=== PATIENT | female | born 1970 | race Caucasian/White ===

== ENCOUNTER 2017-05-23 21:58 | Emergency (ER) | payer BC ==
[2017-05-23 22:22] VITALS: BP 164/86
[2017-05-23] MEDS ORDERED: Acetaminophen/HYDROcodone 325-10 MG Tab PO ONE (22:37)
[2017-05-23] MEDS ORDERED: Phenazopyridine 95 MG Tab PO ONE (22:40)
--- NOTE | 2017-05-23 22:41 | EDM.PDOC ---
ED HPI GENERAL MEDICAL PROBLEM - General Chief Complaint: Genitourinary Problem Stated Complaint: SEVERE ABD PAINS, [id number] Time Seen by Provider: 05/23/17 22:39 Source of Information: Reports: Patient History Limitations: Reports: No Limitations - History of Present Illness INITIAL COMMENTS - FREE TEXT/NARRATIVE: gives recurrent h/o UTI, but this time her pain feels worse. Pelvic Pain Score (Numeric/FACES): 7 - Related Data Allergies Allergy/AdvReac Type Severity Reaction Status Date / Time metronidazole [From Flagyl] Allergy Facial Verified 05/23/17 22:18 Swelling Metronidazole HCl Allergy Facial Verified 05/23/17 22:18 [From Flagyl] Swelling morphine Allergy Vomiting Verified 05/23/17 22:18 povidone-iodine Allergy Swelling Verified 05/23/17 22:18 [From Betadine] soap [From Betadine] Allergy Swelling Verified 05/23/17 22:18 IV contrast Allergy Swelling Uncoded 05/23/17 22:18 tape Allergy Blisters Uncoded 05/23/17 22:18 Home Meds: Home Meds Acetaminophen [Tylenol] 1,500 mg PO QID PRN 11/24/13 [History] Aspirin [Saud Chewable Aspirin] 81 mg PO DAILY 11/24/13 [History] Calcium Carb & Citrate/Vit D3 [Calcium + Vitamin D3 Caplet] 200 mg PO DAILY [History] Hydrochlorothiazide 25 mg PO DAILY 11/24/13 [History] Losartan [Cozaar] 50 mg PO DAILY 11/24/13 [History] Metoprolol Tartrate [Lopressor] 50 mg PO BID 11/24/13 [History] Pantoprazole Sodium [Pantoprazole Sodium] 40 mg PO DAILY 11/24/13 [History] Simvastatin [Simvastatin] 20 mg PO DAILY 11/24/13 [History] metFORMIN [Glucophage] 1,000 mg PO BID 11/24/13 [History] Azithromycin [Azithromycin] 250 mg PO ASDIRECTED 09/16/16 [History] Ibuprofen [Motrin] 800 mg PO ASDIRECTED PRN 09/16/16 [History] Liraglutide [Victoza] 1.8 ml SQ DAILY 09/16/16 [History] Promethazine HCl/Codeine [Promethazine-Codeine Syrup] 5 ml PO ASDIRECTED PRN 06/22 [History] Past Medical History HEENT History: Reports: Impaired Vision Other HEENT History: wears glasses Cardiovascular History: Reports: High Cholesterol, Hypertension Respiratory History: Reports: None Gastrointestinal History: Reports: GERD Genitourinary History: Reports: Renal Calculus Other Genitourinary History: bladder sling 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 Musculoskeletal History: Reports: None Neurological History: Reports: None Psychiatric History: Reports: None Endocrine/Metabolic History: Reports: Diabetes, Type II Hematologic History: Reports: None Immunologic History: Reports: None Oncologic (Cancer) History: Reports: Other (See Below) Other Oncologic History: Kidney Dermatologic History: Reports: None - Infectious Disease History Infectious Disease History: Reports: Chicken Pox, Influenza Other Infectious Disease History: CMV Social & Family History - Family History Family Medical History: Noncontributory - Tobacco Use Smoking Status *Q: Never Smoker Second Hand Smoke Exposure: No - Caffeine Use Caffeine Use: Reports: Coffee, Soda - Alcohol Use Days Per Week of Alcohol Use: 0 - Recreational Drug Use Recreational Drug Use: No - Living Situation & Occupation Living situation: Reports: Occupation: Employed ED ROS GENERAL - Review of Systems Review Of Systems: ROS reveals no pertinent complaints other than HPI. ED EXAM, RENAL/ - Physical Exam Exam: See Below Exam Limited By: No Limitations General Appearance: Alert, WD/WN, Mild Distress, Other (pain) Ears: Hearing Grossly Normal Throat/Mouth: Normal Voice, No Airway Compromise Head: Atraumatic Neck: Non-Tender, Full Range of Motion Respiratory/Chest: No Respiratory Distress Cardiovascular: Regular Rate, Rhythm GI/Abdominal: Tender, Other (suprapubic). No: Distended, Guarding, Rigid, Rebound Neurological: Alert, Oriented, Normal Cognition, Normal Gait, No Motor/Sensory Deficits Psychiatric: Tearful Skin Exam: Warm, Dry, Normal Color Lymphatic: No Adenopathy Course - Vital Signs Last Recorded V/S: Last Vital Signs Temp 36.3 C 05/23/17 22:21 Pulse 108 H 05/23/17 22:21 Resp 22 H 05/23/17 22:21 BP 164/86 H 05/23/17 22:21 Pulse Ox 98 05/23/17 22:21 - Orders/Labs/Meds Labs: Laboratory Tests 05/23/17 Range/Units 22:04 Urine Color Brown (YELLOW) Urine Appearance Turbid (CLEAR) Urine pH 6.0 (5.0-9.0) Ur Specific [place] >= 1.030 (1.005-1.030) Urine Protein >=300 H (NEGATIVE) Urine Glucose (UA) Negative (NEGATIVE) Urine Ketones 15 H (NEGATIVE) Urine Occult Blood Large H (NEGATIVE) Urine Nitrite Positive H (NEGATIVE) Urine Bilirubin Moderate H (NEGATIVE) Urine Urobilinogen 1.0 (0.2-1.0) mg/dL Ur Leukocyte Esterase Negative (NEGATIVE) Urine RBC Packed H /HPF Urine WBC >100 H (0-5/HPF) /HPF Ur Epithelial Cells Moderate H /HPF Urine Bacteria Many H (0-FEW/HPF) /HPF Meds: Medications Discontinued Medications Generic Name Dose Route Start Last Admin Trade Name Freq PRN Reason Stop Dose Admin Hydrocodone Bitart/Acetaminophen 1 tab 05/23/17 22:37 05/23/17 22:43 [place] 325-10 Mg PO 05/23/17 22:38 1 tab ONETIME ONE Administration Nitrofurantoin Macrocrystals 100 mg 05/23/17 22:46 Macrobid PO 05/23/17 22:47 ONETIME ONE Phenazopyridine HCl 95 mg 05/23/17 22:40 05/23/17 22:43 Urinary Pain Relief PO 05/23/17 22:41 95 mg ONETIME ONE Administration - Re-Assessments/Exams Free Text/Narrative Re-Assessment/Exam: 05/23/17 22:48 results discussed with pt. Departure - Departure Time of Disposition: 22:48 Disposition: Home, Self-Care 01 Condition: Good Clinical Impression: UTI, Urinary tract infectious disease - Discharge Information Instructions: Urinary Tract Infection, Adult, [id number] Forms: ED Department Discharge Additional Instructions: 1) drink lots of liquids, cranberry juice 2) recheck as needed rx given; bactrim DS bid x 20 pyridium 100mg tid prn x 12
[2017-05-23] MEDS ORDERED: Nitrofurantoin Monohydrate/Macrocrystalline 100 MG Cap PO ONE (22:46)
== END 2017-05-23 22:54 | disposition home or self-care (01) ==
LOC: DL.ED 21:58
DX: N39.0 Urinary tract infection, site not specified (principal); E78.00 Pure hypercholesterolemia, unspecified; I10 Essential (primary) hypertension; K21.9 Gastro-esophageal reflux disease without esophagitis; E11.9 Type 2 diabetes mellitus without complications; Z88.8 Allergy status to other drugs, medicaments and biological substances; Z91.048 Other nonmedicinal substance allergy status; Z88.5 Allergy status to narcotic agent; Z79.82 Long term (current) use of aspirin
CPT/HCPCS: 81001; 87086; 99283; A9270; 87088; 87186

== ENCOUNTER 2017-05-27 10:06 | Emergency (ER) | payer BC ==
[2017-05-27 11:21] VITALS: BP 130/68
[2017-05-27] MEDS ORDERED: HYDROmorphone 1 MG/ML Syringe IVPUSH ONE (11:32)
[2017-05-27] MEDS ORDERED: Sodium Chloride 0.9% 1,000 ML IV ONE (11:32)
[2017-05-27] MEDS ORDERED: Ondansetron 4 MG/2 ML SDV IV ONE ×2 (11:34→12:50)
--- NOTE | 2017-05-27 11:35 | EDM.PDOC ---
ED HPI GENERAL MEDICAL PROBLEM - General Chief Complaint: Fever Stated Complaint: CONSTANT TEMP, PAIN ON RT SIDE Time Seen by Provider: 05/27/17 11:29 Source of Information: Reports: Patient History Limitations: Reports: No Limitations - History of Present Illness INITIAL COMMENTS - FREE TEXT/NARRATIVE: 47 yo white female c/o continued fever since one day after ED visit. Pt. on Bactrim for UTI since Sun. Pt. PMHx. Right Kidney Stone and Right renal cancer. PSHx. Partial right nephrectomy Pt. states symptoms began on Onset Date: 05/23/17 Onset Time: 12:00 Duration: Day(s): Location: Reports: Abdomen, Back, Generalized Quality: Reports: Ache Severity: Moderate Improves with: Reports: Medication (Ibuprofen) Worsens with: Reports: None Associated Symptoms: Reports: Fever/Chills Right Flank Pain Score (Numeric/FACES): 5 - Related Data Allergies Allergy/AdvReac Type Severity Reaction Status Date / Time metronidazole [From Flagyl] Allergy Facial Verified 05/27/17 11:21 Swelling Metronidazole HCl Allergy Facial Verified 05/27/17 11:21 [From Flagyl] Swelling morphine Allergy Vomiting Verified 05/27/17 11:21 povidone-iodine Allergy Swelling Verified 05/27/17 11:21 [From Betadine] soap [From Betadine] Allergy Swelling Verified 05/27/17 11:21 IV contrast Allergy Swelling Uncoded 05/27/17 11:21 tape Allergy Blisters Uncoded 05/27/17 11:21 Home Meds: Home Meds Acetaminophen [Tylenol] 1,500 mg PO QID PRN 11/24/13 [History] Aspirin [Saud Chewable Aspirin] 81 mg PO DAILY 11/24/13 [History] Calcium Carb & Citrate/Vit D3 [Calcium + Vitamin D3 Caplet] 200 mg PO DAILY [History] Hydrochlorothiazide 12.5 mg PO DAILY 11/24/13 [History] Losartan [Cozaar] 50 mg PO DAILY 11/24/13 [History] Metoprolol Tartrate [Lopressor] 50 mg PO BID 11/24/13 [History] Pantoprazole Sodium [Pantoprazole Sodium] 40 mg PO DAILY 11/24/13 [History] Simvastatin [Simvastatin] 20 mg PO DAILY 11/24/13 [History] metFORMIN [Glucophage] 1,000 mg PO BID 11/24/13 [History] Ibuprofen [Motrin] 800 mg PO ASDIRECTED PRN 09/16/16 [History] Liraglutide [Victoza] 1.8 ml SQ DAILY 09/16/16 [History] Acetaminophen [Tylenol Extra Strength] 1,500 mg PO ASDIRECTED PRN 05/27/17 [ History] Potassium Chloride [Potassium Chloride] 10 meq PO DAILY 05/27/17 [History] Past Medical History HEENT History: Reports: Impaired Vision Other HEENT History: wears glasses Cardiovascular History: Reports: High Cholesterol, Hypertension Respiratory History: Reports: None Gastrointestinal History: Reports: GERD Genitourinary History: Reports: Renal Calculus Other Genitourinary History: bladder sling 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 Musculoskeletal History: Reports: None Neurological History: Reports: None Psychiatric History: Reports: None Endocrine/Metabolic History: Reports: Diabetes, Type II Hematologic History: Reports: None Immunologic History: Reports: None Oncologic (Cancer) History: Reports: Other (See Below) Other Oncologic History: Kidney Dermatologic History: Reports: None - Infectious Disease History Infectious Disease History: Reports: Chicken Pox, Influenza Other Infectious Disease History: CMV Social & Family History - Family History Family Medical History: Noncontributory - Tobacco Use Smoking Status *Q: Never Smoker Second Hand Smoke Exposure: No - Caffeine Use Caffeine Use: Reports: Coffee, Soda - Alcohol Use Days Per Week of Alcohol Use: 0 - Recreational Drug Use Recreational Drug Use: No - Living Situation & Occupation Living situation: Reports: Occupation: Employed ED ROS GENERAL - Review of Systems Review Of Systems: See Below Constitutional: Reports: No Symptoms HEENT: Reports: No Symptoms Respiratory: Reports: No Symptoms Cardiovascular: Reports: No Symptoms Endocrine: Reports: No Symptoms GI/Abdominal: Reports: Abdominal Pain (right flank) : Reports: Flank Pain (right), Hematuria Musculoskeletal: Reports: No Symptoms Skin: Reports: No Symptoms Neurological: Reports: No Symptoms Psychiatric: Reports: No Symptoms Hematologic/Lymphatic: Reports: No Symptoms Immunologic: Reports: No Symptoms ED EXAM, RENAL/ - Physical Exam Exam: See Below Exam Limited By: No Limitations General Appearance: Alert, No Apparent Distress, Obese Eye Exam: Bilateral Eye: EOMI, PERRL Ears: Normal External Exam Nose: Normal Inspection Throat/Mouth: Normal Inspection Head: Atraumatic Neck: Normal Inspection Respiratory/Chest: No Respiratory Distress, Lungs Clear Cardiovascular: Normal Peripheral Pulses, Regular Rate, Rhythm GI/Abdominal: Normal Bowel Sounds, Soft, Non-Tender Back Exam: Normal Inspection Extremities: Normal Inspection, Normal Range of Motion Neurological: Alert, Oriented, CN II-XII Intact Psychiatric: Normal Affect, Normal Mood Skin Exam: Warm, Dry, Intact, Normal Color, No Rash Lymphatic: No Adenopathy Course - Vital Signs Last Recorded V/S: Last Vital Signs Temp 36.4 C 05/27/17 11:16 Pulse 107 H 05/27/17 11:16 Resp 16 05/27/17 11:16 BP 130/68 05/27/17 11:16 Pulse Ox 95 05/27/17 11:16 - Orders/Labs/Meds Orders: Active Orders 24 hr Category Date Time Status Abdomen Pelvis wo Cont [CT] Urgent Exams 05/27/17 11:32 Ordered CULTURE BLOOD [BC] Stat Lab 05/27/17 11:46 Received CULTURE BLOOD [BC] Stat Lab 05/27/17 12:03 Received CULTURE URINE [RM] Stat Lab 05/27/17 11:50 Received Labs: Laboratory Tests 05/27/17 05/27/17 05/27/17 Range/Units 11:46 11:46 11:50 WBC 4.2 L (5.0-10.0) 10^3/uL RBC 4.10 L (4.2-5.4) 10^6/uL Hgb 12.5 D (12.0-16.0) g/dL Hct 37.7 (37.0-47.0) % MCV 92.0 (80-100) fL MCH 30.5 (27.0-34.0) pg MCHC 33.2 (33.0-35.0) g/dL Plt Count 184 D (150-450) 10^3/uL Neut % (Auto) 79.3 H (42.2-75.2) % Lymph % (Auto) 8.7 L (20.5-50.1) % [place] % (Auto) 9.9 H (2-8) % Eos % (Auto) 1.9 (1.0-3.0) % Baso % (Auto) 0.2 (0.0-1.0) % Sodium 137 (135-145) mmol/L Potassium 3.5 L (3.6-5.0) mmol/L Chloride 100 L (101-111) mmol/L Carbon Dioxide 23.0 (21.0-31.0) mmol/L Anion Gap 17.5 BUN 10 (7-18) mg/dL Creatinine 0.6 (0.6-1.3) mg/dL Est Cr Clr Drug Dosing 118.53 mL/min Estimated GFR (MDRD) > 60 BUN/Creatinine Ratio 16.66 Glucose 206 H (74-105) mg/dL Lactic Acid (0.5-2.2) mmol/L Calcium 9.0 (8.4-10.2) mg/dl Total Bilirubin 4.1 H (0.2-1.0) mg/dL AST 116 H (10-42) IU/L ALT 146 H (10-60) IU/L Alkaline Phosphatase 116 (42-121) IU/L Total Protein 7.2 (6.7-8.2) g/dl Albumin 3.3 (3.2-5.5) g/dl Globulin 3.9 Albumin/Globulin Ratio 0.85 Urine Color [place] (YELLOW) Urine Appearance Clear (CLEAR) Urine pH 6.0 (5.0-9.0) Ur Specific [place] 1.010 (1.005-1.030) Urine Protein 30 H (NEGATIVE) Urine Glucose (UA) 100 H (NEGATIVE) Urine Ketones 80 H (NEGATIVE) Urine Occult Blood Trace-intact H (NEGATIVE) Urine Nitrite Positive H (NEGATIVE) Urine Bilirubin Large H (NEGATIVE) Urine Urobilinogen 2.0 H (0.2-1.0) mg/dL Ur Leukocyte Esterase Negative (NEGATIVE) Urine RBC 0-5 /HPF Urine WBC 5-10 H (0-5/HPF) /HPF Ur Epithelial Cells Moderate H /HPF Urine Bacteria Few (0-FEW/HPF) /HPF Urine Mucus Few H /LPF 05/27/17 Range/Units 12:03 WBC (5.0-10.0) 10^3/uL RBC (4.2-5.4) 10^6/uL Hgb (12.0-16.0) g/dL Hct (37.0-47.0) % MCV (80-100) fL MCH (27.0-34.0) pg MCHC (33.0-35.0) g/dL Plt Count (150-450) 10^3/uL Neut % (Auto) (42.2-75.2) % Lymph % (Auto) (20.5-50.1) % [place] % (Auto) (2-8) % Eos % (Auto) (1.0-3.0) % Baso % (Auto) (0.0-1.0) % Sodium (135-145) mmol/L Potassium (3.6-5.0) mmol/L Chloride (101-111) mmol/L Carbon Dioxide (21.0-31.0) mmol/L Anion Gap BUN (7-18) mg/dL Creatinine (0.6-1.3) mg/dL Est Cr Clr Drug Dosing mL/min Estimated GFR (MDRD) BUN/Creatinine Ratio Glucose (74-105) mg/dL Lactic Acid 1.6 (0.5-2.2) mmol/L Calcium (8.4-10.2) mg/dl Total Bilirubin (0.2-1.0) mg/dL AST (10-42) IU/L ALT (10-60) IU/L Alkaline Phosphatase (42-121) IU/L Total Protein (6.7-8.2) g/dl Albumin (3.2-5.5) g/dl Globulin Albumin/Globulin Ratio Urine Color (YELLOW) Urine Appearance (CLEAR) Urine pH (5.0-9.0) Ur Specific [place] (1.005-1.030) Urine Protein (NEGATIVE) Urine Glucose (UA) (NEGATIVE) Urine Ketones (NEGATIVE) Urine Occult Blood (NEGATIVE) Urine Nitrite (NEGATIVE) Urine Bilirubin (NEGATIVE) Urine Urobilinogen (0.2-1.0) mg/dL Ur Leukocyte Esterase (NEGATIVE) Urine RBC /HPF Urine WBC (0-5/HPF) /HPF Ur Epithelial Cells /HPF Urine Bacteria (0-FEW/HPF) /HPF Urine Mucus /LPF Meds: Medications Discontinued Medications Generic Name Dose Route Start Last Admin Trade Name Freq PRN Reason Stop Dose Admin Hydromorphone HCl 2 mg 05/27/17 11:32 05/27/17 12:04 Dilaudid IVPUSH 05/27/17 11:33 2 mg ONETIME ONE Administration Sodium Chloride 1,000 mls @ 999 mls/hr 05/27/17 11:32 05/27/17 12:01 Normal Saline IV 05/27/17 12:32 999 mls/hr .BOLUS ONE Administration Ondansetron HCl 4 mg 05/27/17 11:34 05/27/17 12:02 Zofran IV 05/27/17 11:35 4 mg ONETIME ONE Administration Departure - Departure Time of Disposition: 12:45 Disposition: DC/Tfer to Acute Hospital 02 Condition: Fair 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 UTI (urinary tract infection) Qualifiers: Urinary tract infection type: acute cystitis Hematuria presence: with hematuria Qualified Code(s): N30.01 - Acute cystitis with hematuria - Discharge Information Forms: ED Department Discharge, Interfacility Transfer EMTALA - My Orders Last 24 Hours: My Active Orders 05/27/17 11:32 Abdomen Pelvis wo Cont [CT] Urgent 05/27/17 11:46 CULTURE BLOOD [BC] Stat 05/27/17 11:50 CULTURE URINE [RM] Stat 05/27/17 12:03 CULTURE BLOOD [BC] Stat - Assessment/Plan Last 24 Hours: My Active Orders 05/27/17 11:32 Abdomen Pelvis wo Cont [CT] Urgent 05/27/17 11:46 CULTURE BLOOD [BC] Stat 05/27/17 11:50 CULTURE URINE [RM] Stat 05/27/17 12:03 CULTURE BLOOD [BC] Stat
[2017-05-27 12:13] LABS: CHLORIDE,CL 100 mmol/L (101-111); SODIUM,NA 137 mmol/L (135-145)
== END 2017-05-27 13:28 ==
LOC: DL.ED 10:06
DX: N30.01 Acute cystitis with hematuria (principal); L51.1 Stevens-Johnson syndrome; I10 Essential (primary) hypertension; E78.00 Pure hypercholesterolemia, unspecified; E11.9 Type 2 diabetes mellitus without complications; Z79.84 Long term (current) use of oral hypoglycemic drugs; Z79.82 Long term (current) use of aspirin; Z79.899 Other long term (current) drug therapy; Z91.09 Other allergy status, other than to drugs and biological substances; Z88.8 Allergy status to other drugs, medicaments and biological substances; Z88.5 Allergy status to narcotic agent
CPT/HCPCS: 36415; 74176; 80053; 81001; 83605; 85025; 87040; 87086; 96361; 96374; 96375; 96376; 99285; J1170; J2405; J7030; 87088

== ENCOUNTER 2018-12-02 08:58 | Emergency (ER) | payer BC ==
[2018-12-02 10:24] VITALS: BP 146/72
--- NOTE | 2018-12-02 12:00 | CR ---
Clinical history: 48-year-old female complaining of pain in neck ("unable to move"). Interpretation: AP lateral cervical spine films confirm right supraclavicular central venous line. Chronic multilevel lower cervical disc disease i.e. interspace narrowing with hypertrophic marginal spondylosis bridging the C5-6 and the C6-7 levels. Reactive atlantoaxial sclerosis. No sign of pathologic skeletal lesion, cervical fracture, spondylolisthesis or proximal intervertebral disc space narrowing. No cervical rib anomalies. Lung apices clear. 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
[2018-12-02] MEDS ORDERED: Butorphanol 2 MG/ML SDV IM ONE (12:18)
--- NOTE | 2018-12-02 12:18 | EDM.PDOC ---
ED HPI GENERAL MEDICAL PROBLEM - General Chief Complaint: Neck Problem Stated Complaint: NECK HURTS [id number] Time Seen by Provider: 12/02/18 11:10 Source of Information: Reports: Patient, RN, RN Notes Reviewed History Limitations: Reports: No Limitations - History of Present Illness INITIAL COMMENTS - FREE TEXT/NARRATIVE: Patient presents to ER with complaint of neck pain. This began x1 week ago. Sunday couldn't move to the right. Today he is much worse not able to move any direction. She denies trauma to the neck--states she slept wrong. She has diarrhea on Sunday. No headache, fever, chills, nausea or vomiting. Onset Date: 11/25/18 Duration: Getting Worse Location: Reports: Generalized Severity: Moderate Improves with: Reports: None Worsens with: Reports: None Associated Symptoms: Reports: No Other Symptoms Neck Pain Score (Numeric/FACES): 7 - Related Data Allergies Allergy/AdvReac Type Severity Reaction Status Date / Time metronidazole [From Flagyl] Allergy Facial Verified 05/27/17 11:21 Swelling Metronidazole HCl Allergy Facial Verified 05/27/17 11:21 [From Flagyl] Swelling morphine Allergy Vomiting Verified 05/27/17 11:21 povidone-iodine Allergy Swelling Verified 05/27/17 11:21 [From Betadine] soap [From Betadine] Allergy Swelling Verified 05/27/17 11:21 IV contrast Allergy Swelling Uncoded 05/27/17 11:21 tape Allergy Blisters Uncoded 05/27/17 11:21 Home Meds: Home Meds Acetaminophen [Tylenol] 1,500 mg PO QID PRN 11/24/13 [History] Aspirin [Saud Chewable Aspirin] 81 mg PO DAILY 11/24/13 [History] Calcium Carb & Citrate/Vit D3 [Calcium + Vitamin D3 Caplet] 200 mg PO DAILY [History] Losartan [Cozaar] 50 mg PO DAILY 11/24/13 [History] Metoprolol Tartrate [Lopressor] 50 mg PO BID 11/24/13 [History] Pantoprazole Sodium 40 mg PO DAILY 11/24/13 [History] Simvastatin 20 mg PO DAILY 11/24/13 [History] hydroCHLOROthiazide [Hydrochlorothiazide] 12.5 mg PO DAILY 11/24/13 [History] metFORMIN [Glucophage] 1,000 mg PO BID 11/24/13 [History] Ibuprofen [Motrin] 800 mg PO ASDIRECTED PRN 09/16/16 [History] Liraglutide [Victoza] 1.8 ml SQ DAILY 09/16/16 [History] Acetaminophen [Tylenol Extra Strength] 1,500 mg PO ASDIRECTED PRN 05/27/17 [ History] Potassium Chloride 10 meq PO DAILY 05/27/17 [History] Past Medical History HEENT History: Reports: Impaired Vision Other HEENT History: wears glasses Cardiovascular History: Reports: High Cholesterol, Hypertension Respiratory History: Reports: None Gastrointestinal History: Reports: GERD Genitourinary History: Reports: Renal Calculus Other Genitourinary History: bladder sling 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 Musculoskeletal History: Reports: None (disc to neck), Other (See Below) Neurological History: Reports: None Psychiatric History: Reports: None Endocrine/Metabolic History: Reports: Diabetes, Type II Hematologic History: Reports: None Immunologic History: Reports: None Oncologic (Cancer) History: Reports: Other (See Below) Other Oncologic History: Kidney Dermatologic History: Reports: None - Infectious Disease History Infectious Disease History: Reports: Chicken Pox, Influenza Other Infectious Disease History: CMV Social & Family History - Family History Family Medical History: Noncontributory - Tobacco Use Smoking Status *Q: Never Smoker - Caffeine Use Caffeine Use: Reports: None - Recreational Drug Use Recreational Drug Use: No - Living Situation & Occupation Living situation: Reports: Occupation: Employed ED ROS GENERAL - Review of Systems Review Of Systems: ROS reveals no pertinent complaints other than HPI. ED EXAM, UPPER BACK/NECK PAIN - Physical Exam Exam: See Below Exam Limited By: No Limitations General Appearance: Alert, WD/WN, No Apparent Distress Eye Exam: Bilateral Eye: EOMI, Normal Inspection, PERRL Ears Exam: Normal External Exam, Normal Canal, Hearing Grossly Normal, Normal TMs Nose Exam: Normal Inspection, Normal Mucousa, No Blood Throat/Mouth Exam: Normal Inspection Head Exam: Atraumatic, Normocephalic Neck Exam: Other (decreased range of motion of neck tender lateral) Cardiovascular/Respiratory: Regular Rate, Rhythm, No M/R/G, Normal Peripheral Pulses, No JVD, Normal Breath Sounds, No Respiratory Distress GI/Abdominal: Normal Bowel Sounds, Soft, Non-Tender, No Organomegaly, No Distention, No Abnormal Bruit, No Mass (Female) Exam: Deferred Rectal (Female) Exam: Deferred Back Exam: Normal Inspection, Full Range of Motion, NT Extremities: Normal Inspection, Normal Range of Motion, Non-Tender, No Pedal Edema, Normal Capillary Refill Neurologic: clinical practitioner II-XII nml As Tested, No Motor/Sensory Deficits, Alert, Normal Mood/Affect, Oriented x 3 Psychiatric: Normal Affect, Normal Mood Skin Exam: Normal Color, Warm/Dry Lymphatic: No Adenopathy Course - Vital Signs Last Recorded V/S: Last Vital Signs Temp 98.4 F 12/02/18 09:30 Pulse 82 12/02/18 09:30 Resp 16 12/02/18 09:30 BP 146/72 H 12/02/18 09:30 Pulse Ox 96 12/02/18 09:30 - Orders/Labs/Meds Meds: Medications Discontinued Medications Generic Name Dose Route Start Last Admin Trade Name Freq PRN Reason Stop Dose Admin Butorphanol Tartrate 2 mg 12/02/18 12:18 12/02/18 12:24 Stadol IM 12/02/18 12:19 2 mg ONETIME ONE Administration Ondansetron HCl 4 mg 12/02/18 12:19 12/02/18 12:24 Zofran Odt PO 12/02/18 12:20 4 mg ONETIME ONE Administration Orphenadrine Citrate 60 mg 12/02/18 11:15 12/02/18 11:26 Norflex IM 60 mg Q12H EMELY Administration - Radiology Interpretation Free Text/Narrative:: CSpine xray: 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 See rad report Departure - Departure Time of Disposition: 12:30 Disposition: Home, Self-Care 01 Condition: Fair Clinical Impression: Muscle spasm Cervical sprain Qualifiers: Encounter type: initial encounter Qualified Code(s): S13.9XXA - Sprain of joints and ligaments of unspecified parts of neck, initial encounter - Discharge Information *PRESCRIPTION DRUG MONITORING PROGRAM REVIEWED*: No *COPY OF PRESCRIPTION DRUG MONITORING REPORT IN PATIENT ERMA: No Instructions: Muscle Cramps and Spasms, [id number], Cervical Sprain, Easy-to- Read, Heat Therapy, [id number] Referrals: PCP,None [Primary Care Provider] - Forms: ED Department Discharge Additional Instructions: RX: Flexeril, Diclofenac Continue using Tylenol as directed for pain Use heat on the neck as tolerated Follow up with your primary care facility if no improvement
[2018-12-02] MEDS ORDERED: Ondansetron 4 MG Tab.DIS PO ONE (12:19)
== END 2018-12-02 12:40 | disposition home or self-care (01) ==
LOC: DL.ED 08:58
DX: S13.9XXA Sprain of joints and ligaments of unspecified parts of neck, initial encounter (principal); M62.838 Other muscle spasm; M50.90 Cervical disc disorder, unspecified, unspecified cervical region; I10 Essential (primary) hypertension; E11.9 Type 2 diabetes mellitus without complications; Z88.5 Allergy status to narcotic agent; Z88.8 Allergy status to other drugs, medicaments and biological substances; Z91.048 Other nonmedicinal substance allergy status; Z79.899 Other long term (current) drug therapy; Z79.82 Long term (current) use of aspirin
CPT/HCPCS: 72040; 96372; 99283; A9270; J0595; J2360

== ENCOUNTER 2019-05-20 14:26 | Emergency (ER) | payer BC ==
[2019-05-20 15:00] VITALS: BP 148/83; PULSE 92
--- NOTE | 2019-05-20 16:16 | CR ---
EXAMINATION: Knee 4 views Lt SEX: Female AGE: 49 years CLINICAL HISTORY: 49-year-old female complaining of left knee pain. INTERPRETATION: 1. Dense reactive sclerosis and marginal spur formation patellofemoral surface of the left patella. 2. No joint effusion but evidence of chronic severe arthritic changes of the left knee joint i.e. cortical irregularity, dense bony eburnation and hypertrophic marginal spur formation medially (large bone spurs intercondylar tibial spine). 3. No sign of pathologic skeletal lesion, left knee fracture, dislocation or radiopaque loose joint body. 4. Fabella posteriorly. No foreign bodies. CONCLUSION: Osteoarthritis (0A) left knee. No fractures.
--- NOTE | 2019-05-20 16:23 | EDM.PDOC ---
ED HPI GENERAL MEDICAL PROBLEM - General Chief Complaint: Lower Extremity Injury/Pain Stated Complaint: SEVERE LEFT KNEE PAIN Time Seen by Provider: 05/20/19 15:58 Source of Information: Reports: Patient History Limitations: Reports: No Limitations - History of Present Illness INITIAL COMMENTS - FREE TEXT/NARRATIVE: This 49 year old female patient reports to the ED from PT due to left knee pain. The patient reports her pain started Sunday when she rolled over in bed. The patient reports increased pain since the incident. Onset Date: 05/18/19 Duration: Constant Location: Reports: Lower Extremity, Left Quality: Reports: Ache, Sharp Severity: Moderate Improves with: Reports: None Worsens with: Reports: None Context: Reports: Other Associated Symptoms: Reports: No Other Symptoms - Related Data Allergies Allergy/AdvReac Type Severity Reaction Status Date / Time metronidazole [From Flagyl] Allergy Facial Verified 05/20/19 14:51 Swelling Metronidazole HCl Allergy Facial Verified 05/20/19 14:51 [From Flagyl] Swelling morphine Allergy Vomiting Verified 05/20/19 14:51 povidone-iodine Allergy Swelling Verified 05/20/19 14:51 [From Betadine] soap [From Betadine] Allergy Swelling Verified 05/20/19 14:51 IV contrast Allergy Swelling Uncoded 05/20/19 14:51 tape Allergy Blisters Uncoded 05/20/19 14:51 Home Meds: Home Meds Acetaminophen [Tylenol] 1,500 mg PO QID PRN 11/24/13 [History] Aspirin [Saud Chewable Aspirin] 81 mg PO DAILY 11/24/13 [History] Calcium Carb & Citrate/Vit D3 [Calcium + Vitamin D3 Caplet] 200 mg PO DAILY [History] Losartan [Cozaar] 50 mg PO DAILY 11/24/13 [History] Metoprolol Tartrate [Lopressor] 50 mg PO BID 11/24/13 [History] Pantoprazole Sodium 40 mg PO DAILY 11/24/13 [History] Simvastatin 20 mg PO DAILY 11/24/13 [History] hydroCHLOROthiazide [Hydrochlorothiazide] 12.5 mg PO DAILY 11/24/13 [History] metFORMIN [Glucophage] 1,000 mg PO BID 11/24/13 [History] Ibuprofen [Motrin] 800 mg PO ASDIRECTED PRN 09/16/16 [History] Liraglutide [Victoza] 1.8 ml SQ DAILY 09/16/16 [History] Acetaminophen [Tylenol Extra Strength] 1,500 mg PO ASDIRECTED PRN 05/27/17 [ History] Potassium Chloride 10 meq PO DAILY 05/27/17 [History] Past Medical History HEENT History: Reports: Impaired Vision Other HEENT History: wears glasses Cardiovascular History: Reports: High Cholesterol, Hypertension Respiratory History: Reports: None Gastrointestinal History: Reports: GERD Genitourinary History: Reports: Renal Calculus, Other (See Below) Other Genitourinary History: bladder sling 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 Musculoskeletal History: Reports: None, Other (See Below) Neurological History: Reports: None Psychiatric History: Reports: None Endocrine/Metabolic History: Reports: Diabetes, Type II Hematologic History: Reports: None Immunologic History: Reports: None Oncologic (Cancer) History: Reports: Other (See Below) Other Oncologic History: Kidney Dermatologic History: Reports: None - Infectious Disease History Infectious Disease History: Reports: Chicken Pox, Influenza Other Infectious Disease History: CMV Social & Family History - Family History Family Medical History: Noncontributory - Tobacco Use Smoking Status *Q: Never Smoker Second Hand Smoke Exposure: No - Caffeine Use Caffeine Use: Reports: None - Living Situation & Occupation Living situation: Reports: Occupation: Employed Review of Systems - Review of Systems Review Of Systems: ROS reveals no pertinent complaints other than HPI. ED EXAM, GENERAL - Physical Exam Exam: See Below Exam Limited By: No Limitations General Appearance: Alert, WD/WN, Moderate Distress Eye Exam: Bilateral Eye: EOMI, Normal Inspection, PERRL Ears: Normal External Exam, Normal Canal, Hearing Grossly Normal, Normal TMs Nose: Normal Inspection, Normal Mucosa, No Blood Throat/Mouth: Normal Inspection, Normal Lips, Normal Teeth, Normal Gums, Normal Oropharynx, Normal Voice, No Airway Compromise Head: Atraumatic, Normocephalic Neck: Normal Inspection, Supple, Non-Tender, Full Range of Motion Respiratory/Chest: No Respiratory Distress, Lungs Clear, Normal Breath Sounds, No Accessory Muscle Use, Chest Non-Tender Cardiovascular: Normal Peripheral Pulses, Regular Rate, Rhythm, No Edema, No Gallop, No JVD, No Murmur, No Rub GI/Abdominal: Normal Bowel Sounds, Soft, Non-Tender, No Organomegaly, No Distention, No Abnormal Bruit, No Mass (Female) Exam: Deferred Rectal (Female) Exam: Deferred Back Exam: Normal Inspection, Full Range of Motion, NT Extremities: Leg Pain (left knee pain) Neurological: Alert, Oriented, CN II-XII Intact, Normal Cognition, Normal Gait, Normal Reflexes, No Motor/Sensory Deficits Psychiatric: Normal Affect, Normal Mood Skin Exam: Warm, Dry, Intact, Normal Color, No Rash Lymphatic: No Adenopathy Course - Vital Signs Last Recorded V/S: Last Vital Signs Temp 37.3 C 05/20/19 14:48 Pulse 92 05/20/19 14:48 Resp 18 05/20/19 14:48 BP 148/83 H 05/20/19 14:48 Pulse Ox 98 05/20/19 14:48 - Orders/Labs/Meds Orders: Active Orders 24 hr Category Date Time Status DME for Discharge [COMM] Urgent Oth 05/20/19 16:11 Ordered Departure - Departure Time of Disposition: 16:20 Disposition: Home, Self-Care 01 Condition: Fair Clinical Impression: Strain of left knee Qualifiers: Encounter type: initial encounter Qualified Code(s): S86.912A - Strain of unspecified muscle(s) and tendon(s) at lower leg level, left leg, initial encounter - Discharge Information *PRESCRIPTION DRUG MONITORING PROGRAM REVIEWED*: Not Applicable *COPY OF PRESCRIPTION DRUG MONITORING REPORT IN PATIENT ERMA: Not Applicable Instructions: How to Use a Knee Immobilizer, [id number], Knee Sprain, Adult, [id number] Care Plan Goals: The patient was advised of the examination and x-ray results during the visit. The patient was placed in a left knee immobilizer while in the ED. The patient was encouraged to rest, ice and elevate her left knee. The patient should follow -up with her primary care facility for continued evaluation and management. If the patient has any additional symptoms or concerns, the patient should either return to the emergency department or visit the emergency department. - My Orders Last 24 Hours: My Active Orders 05/20/19 16:11 DME for Discharge [COMM] Urgent - Assessment/Plan Last 24 Hours: My Active Orders 05/20/19 16:11 DME for Discharge [COMM] Urgent
== END 2019-05-20 16:29 | disposition home or self-care (01) ==
LOC: DL.ED 14:26
DX: S86.912A Strain of unspecified muscle(s) and tendon(s) at lower leg level, left leg, initial encounter (principal); I10 Essential (primary) hypertension; E78.00 Pure hypercholesterolemia, unspecified; K21.9 Gastro-esophageal reflux disease without esophagitis; E11.9 Type 2 diabetes mellitus without complications; Z88.1 Allergy status to other antibiotic agents; Z88.5 Allergy status to narcotic agent; Z88.3 Allergy status to other anti-infective agents; Z91.041 Radiographic dye allergy status; Z91.048 Other nonmedicinal substance allergy status; Z79.899 Other long term (current) drug therapy; Z79.82 Long term (current) use of aspirin; Z79.84 Long term (current) use of oral hypoglycemic drugs; X50.9XXA Other and unspecified overexertion or strenuous movements or postures, initial encounter
CPT/HCPCS: 73562-LT; 99283-25

== ENCOUNTER 2020-10-17 17:26 | Emergency (ER) | payer BC ==
[2020-10-17 18:31] LABS: ANION GAP 15.3 mEq/L (7-13); CHLORIDE,CL 100 mmol/L (98-107); SODIUM,NA 139 mmol/L (136-145)
[2020-10-17] MEDS ORDERED: Sodium Chloride 0.9% 1,000 ML IV ONE (18:43)
[2020-10-17] MEDS ORDERED: Ondansetron 4 MG/2 ML SDV IV ONE (18:43)
[2020-10-17 18:45] LABS: CORONAVIRUS COVID-19 NAA NEGATIVE (NEGATIVE)
[2020-10-17] MEDS ORDERED: Acetaminophen 325 MG Tab PO ONE (19:17)
--- NOTE | 2020-10-17 19:17 | EDM.PDOC ---
Scribed by Elzbieta Vee 10/17/20 191 for Alycia Luke NP <Alycia Luke - Last Filed: 10/17/20 19:17> ED HPI GENERAL MEDICAL PROBLEM - General Chief Complaint: Gastrointestinal Problem Stated Complaint: VOMMITING,HIGH FEVER TEMP 99.3 Time Seen by Provider: 10/17/20 17:44 Source of Information: Reports: Patient, RN, RN Notes Reviewed History Limitations: Reports: No Limitations - History of Present Illness INITIAL COMMENTS - FREE TEXT/NARRATIVE: Patient is a 50-year-old female who presents to ER with complaint of fever, vomiting and lethargy since Sunday. Patient states she was seen at the clinic and given Macrobid for UTI. She states she has progressively been getting worse since Sunday. Fever up to 104 today. She last took Tylenol at 1500. She has been alternating Tylenol and Ibuprofen. She has a history of kidney cancer. Reports pain to right side of abdomen, wrapping around to the back. States she no longer has a gallbladder. History of COVID on 08/28/2020. Onset Date: 10/15/20 Duration: Getting Worse Location: Reports: Generalized Quality: Reports: Ache Severity: Severe Improves with: Reports: None Worsens with: Reports: None Associated Symptoms: Reports: No Other Symptoms Bladder Pain Score (Numeric/FACES): 3 - Related Data Allergies Allergy/AdvReac Type Severity Reaction Status Date / Time chlorhexidine Allergy Rash Verified 10/17/20 17:59 metronidazole [From Flagyl] Allergy Facial Verified 10/17/20 17:43 Swelling Metronidazole HCl Allergy Facial Verified 10/17/20 17:43 [From Flagyl] Swelling morphine Allergy Vomiting Verified 10/17/20 17:43 povidone-iodine Allergy Swelling Verified 10/17/20 17:43 [From Betadine] soap [From Betadine] Allergy Swelling Verified 10/17/20 17:43 IV contrast Allergy Swelling Uncoded 10/17/20 17:43 tape Allergy Blisters Uncoded 10/17/20 17:43 Home Meds: Home Meds Acetaminophen [Tylenol] 1,500 mg PO QID PRN 11/24/13 [History] Aspirin [Saud Chewable Aspirin] 81 mg PO DAILY 11/24/13 [History] Calcium Carb & Citrate/Vit D3 [Calcium + Vitamin D3 Caplet] 200 mg PO DAILY 11/24/13 [History] Losartan [Cozaar] 50 mg PO DAILY 11/24/13 [History] Metoprolol Tartrate [Lopressor] 50 mg PO BID 11/24/13 [History] Pantoprazole Sodium 40 mg PO DAILY 11/24/13 [History] Simvastatin 20 mg PO DAILY 11/24/13 [History] hydroCHLOROthiazide [Hydrochlorothiazide] 12.5 mg PO DAILY 11/24/13 [History] metFORMIN [Glucophage] 1,000 mg PO BID 11/24/13 [History] Ibuprofen [Motrin] 800 mg PO ASDIRECTED PRN 09/16/16 [History] Liraglutide [Victoza] 1.8 ml SQ DAILY 09/16/16 [History] Acetaminophen [Tylenol Extra Strength] 1,500 mg PO ASDIRECTED PRN 05/27/17 [History] Potassium Chloride 10 meq PO DAILY 05/27/17 [History] Empagliflozin [Jardiance] 10 mg PO DAILY 09/02/20 [History] Insulin Degludec [Tresiba] 55 units SQ BEDTIME 09/02/20 [History] Past Medical History HEENT History: Reports: Impaired Vision Other HEENT History: wears glasses Cardiovascular History: Reports: High Cholesterol, Hypertension Respiratory History: Reports: Pneumonia, Recurrent Gastrointestinal History: Reports: GERD Genitourinary History: Reports: Renal Calculus, Other (See Below) Other Genitourinary History: bladder sling 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 Musculoskeletal History: Reports: None Neurological History: Reports: Other (See Below) Other Neuro History: NON-ESSENTIAL TREMOR Psychiatric History: Reports: None Endocrine/Metabolic History: Reports: Diabetes, Type II Hematologic History: Reports: None Immunologic History: Reports: None Oncologic (Cancer) History: Reports: Other (See Below) Other Oncologic History: Kidney Dermatologic History: Reports: Other (See Below) Other Dermatologic History: MULTIPLE GLUMOUS TUMOR SYNDROME - Infectious Disease History Infectious Disease History: Reports: Chicken Pox, Influenza, Novel Coronavirus Other Infectious Disease History: CMV - Past Surgical History HEENT Surgical History: Reports: Tonsillectomy GI Surgical History: Reports: Appendectomy, Cholecystectomy Female Surgical History: Reports: Hysterectomy Social & Family History - Family History Family Medical History: No Pertinent Family History - Caffeine Use Caffeine Use: Reports: Coffee - Living Situation & Occupation Living situation: Reports: Occupation: Employed ED ROS GENERAL - Review of Systems Review Of Systems: Comprehensive ROS is negative, except as noted in HPI. ED EXAM, GI/ABD - Physical Exam Exam: See Below Exam Limited By: No Limitations General Appearance: Lethargic, Moderate Distress Eyes: Bilateral: Normal Appearance Ears: Normal External Exam, Normal Canal, Hearing Grossly Normal, Normal TMs Nose: Normal Inspection, Normal Mucosa, No Blood Throat/Mouth: Normal Inspection, Normal Lips, Normal Teeth, Normal Gums, Normal Oropharynx, Normal Voice, No Airway Compromise Head: Atraumatic, Normocephalic Neck: Normal Inspection, Supple, Non-Tender, Full Range of Motion Respiratory/Chest: No Respiratory Distress, Lungs Clear, Normal Breath Sounds, No Accessory Muscle Use, Chest Non-Tender Cardiovascular: Tachycardia GI/Abdominal Exam: Tender (right upper quadrant, right flank. ) (Female) Exam: Deferred Rectal (Female) Exam: Deferred Back Exam: CVA Tenderness (R) Extremities: Normal Inspection, Normal Range of Motion, Non-Tender, Normal Capillary Refill, No Pedal Edema Neurological: Other (lethargic) Psychiatric: Normal Affect, Normal Mood Skin Exam: Jaundice Lymphatic: No Adenopathy Departure - Departure Disposition: Home, Self-Care 01 Clinical Impression: UTI (urinary tract infection) Qualifiers: Urinary tract infection type: acute cystitis Hematuria presence: with hematuria Qualified Code(s): N30.01 - Acute cystitis with hematuria - Discharge Information Instructions: Dehydration, Adult, Alkn-ro-Wvks, Nausea and Vomiting, Adult, Rkfc-[id number]-Dulb, Urinary Tract Infection, Adult, [id number] Forms: ED Department Discharge Care Plan Goals: The patient was advised of the examination, lab and CT results during the visit. The patient was given IV Toradol, IV Zofran and IV Rocephin while in the ED. The patient was discharged with a script for Keflex (500 mg) #30 to take 1 by mouth 3 times per day for 10 days. The patient was advised to stop the previous antibiotic at this time. If the patient has any additional symptoms or concerns, the patient should either return to the emergency department or visit her [facility] facility. Sepsis Event Note (ED) - Evaluation Sepsis Screening Result: No Definite Risk <Santos Archer - Last Filed: 10/17/20 21:06> Course - Vital Signs Last Recorded V/S: Last Vital Signs Temp 37.9 C 10/17/20 20:43 Pulse 110 H 10/17/20 20:43 Resp 18 10/17/20 20:43 BP 103/57 L 10/17/20 20:43 Pulse Ox 94 L 10/17/20 20:43 - Orders/Labs/Meds Orders: Active Orders 24 hr Category Date Time Status CULTURE BLOOD [BC] Stat Lab 10/17/20 17:55 Received CULTURE BLOOD [BC] Stat Lab 10/17/20 18:51 Received cefTRIAXone [Rocephin] 1 gm Med 10/17/20 21:03 Ordered Sodium Chloride 0.9% [Normal Saline] 50 ml IV ONETIME Blood Culture x2 Reflex Set [OM.PC] Stat Oth 10/17/20 17:48 Ordered Isolation [COMM] Routine Oth 10/17/20 17:49 Active Medication Orders Ceftriaxone Sodium 1 gm/ (Sodium Chloride) 50 mls @ 100 mls/hr IV ONETIME ONE Stop: 10/17/20 21:32 Labs: Laboratory Tests 10/17/20 10/17/20 10/17/20 Range/Units 17:40 17:50 17:55 WBC 8.4 (5.0-10.0) 10^3/uL RBC 4.49 (4.2-5.4) 10^6/uL Hgb 13.4 (12.0-16.0) g/dL Hct 40.9 (37.0-47.0) % MCV 91.1 (80-100) fL MCH 29.8 (27.0-34.0) pg MCHC 32.8 L (33.0-35.0) g/dL Plt Count 175 (150-450) 10^3/uL Neut % (Auto) 92.6 H (42.2-75.2) % Lymph % (Auto) 3.1 L (20.5-50.1) % [place] % (Auto) 2.8 (2-8) % Eos % (Auto) 1.4 (1.0-3.0) % Baso % (Auto) 0.1 (0.0-1.0) % PT (9.0-12.0) SEC INR (0.9-1.2) Sodium (136-145) mmol/L Potassium (3.5-5.1) mmol/L Chloride (98-107) mmol/L Carbon Dioxide (21-32) mmol/L Anion Gap (7-13) mEq/L BUN (7-18) mg/dL Creatinine (0.55-1.02) mg/dL Est Cr Clr Drug Dosing mL/min Estimated GFR (MDRD) BUN/Creatinine Ratio (No establ ref range) Glucose (74-99) mg/dL Lactic Acid (0.4-2.0) mmol/L Calcium (8.5-10.1) mg/dL Total Bilirubin (0.2-1.0) mg/dL AST (15-37) U/L ALT (14-59) U/L Alkaline Phosphatase (46-116) U/L Ammonia (11-32) umol/L C-Reactive Protein (0.0-0.9) mg/dL Total Protein (6.4-8.2) g/dL Albumin (3.4-5.0) g/dL Globulin Albumin/Globulin Ratio Amylase (25-115) U/L Lipase (73-393) U/L Urine Color Dark yellow (YELLOW) Urine Appearance Slightly cloudy (CLEAR) Urine pH 5.5 (5.0-9.0) Ur Specific [place] 1.020 (1.005-1.030) Urine Protein 100 H (NEGATIVE) Urine Glucose (UA) 500 H (NEGATIVE) Urine Ketones 15 H (NEGATIVE) Urine Occult Blood Moderate H (NEGATIVE) Urine Nitrite Negative (NEGATIVE) Urine Bilirubin Small H (NEGATIVE) Urine Urobilinogen 0.2 (0.2-1.0) mg/dL Ur Leukocyte Esterase Negative (NEGATIVE) Urine RBC 30-40 H /HPF Urine WBC 0-5 (0-5/HPF) /HPF Ur Epithelial Cells Few (NOT SEEN) /HPF Amorphous Sediment Moderate H (NOT SEEN) /HPF Urine Bacteria Few (0-FEW/HPF) /HPF Granular Casts (Auto) Occasional Urine Mucus Rare (NOT SEEN) /LPF Influenza Type A RNA Negative (NEGATIVE) Influenza Type B RNA Negative (NEGATIVE) SARS-CoV-2 RNA (RENA) Negative (NEGATIVE) 10/17/20 10/17/20 10/17/20 Range/Units 17:55 17:55 17:55 WBC (5.0-10.0) 10^3/uL RBC (4.2-5.4) 10^6/uL Hgb (12.0-16.0) g/dL Hct (37.0-47.0) % MCV (80-100) fL MCH (27.0-34.0) pg MCHC (33.0-35.0) g/dL Plt Count (150-450) 10^3/uL Neut % (Auto) (42.2-75.2) % Lymph % (Auto) (20.5-50.1) % [place] % (Auto) (2-8) % Eos % (Auto) (1.0-3.0) % Baso % (Auto) (0.0-1.0) % PT 11.3 (9.0-12.0) SEC INR 1.1 (0.9-1.2) Sodium 139 (136-145) mmol/L Potassium 3.3 L (3.5-5.1) mmol/L Chloride 100 (98-107) mmol/L Carbon Dioxide 27 (21-32) mmol/L Anion Gap 15.3 H (7-13) mEq/L BUN 21 H (7-18) mg/dL Creatinine 0.94 (0.55-1.02) mg/dL Est Cr Clr Drug Dosing 73.16 mL/min Estimated GFR (MDRD) > 60 BUN/Creatinine Ratio 22.3 (No establ ref range) Glucose 171 H (74-99) mg/dL Lactic Acid 1.2 (0.4-2.0) mmol/L Calcium 8.9 (8.5-10.1) mg/dL Total Bilirubin 6.0 H (0.2-1.0) mg/dL AST 96 H (15-37) U/L ALT 134 H (14-59) U/L Alkaline Phosphatase 143 H (46-116) U/L Ammonia (11-32) umol/L C-Reactive Protein 28.8 H (0.0-0.9) mg/dL Total Protein 6.9 (6.4-8.2) g/dL Albumin 2.9 L (3.4-5.0) g/dL Globulin 4.0 Albumin/Globulin Ratio 0.73 Amylase 18 L (25-115) U/L Lipase 89 (73-393) U/L Urine Color (YELLOW) Urine Appearance (CLEAR) Urine pH (5.0-9.0) Ur Specific [place] (1.005-1.030) Urine Protein (NEGATIVE) Urine Glucose (UA) (NEGATIVE) Urine Ketones (NEGATIVE) Urine Occult Blood (NEGATIVE) Urine Nitrite (NEGATIVE) Urine Bilirubin (NEGATIVE) Urine Urobilinogen (0.2-1.0) mg/dL Ur Leukocyte Esterase (NEGATIVE) Urine RBC /HPF Urine WBC (0-5/HPF) /HPF Ur Epithelial Cells (NOT SEEN) /HPF Amorphous Sediment (NOT SEEN) /HPF Urine Bacteria (0-FEW/HPF) /HPF Granular Casts (Auto) Urine Mucus (NOT SEEN) /LPF Influenza Type A RNA (NEGATIVE) Influenza Type B RNA (NEGATIVE) SARS-CoV-2 RNA (RENA) (NEGATIVE) 10/17/20 Range/Units 19:13 WBC (5.0-10.0) 10^3/uL RBC (4.2-5.4) 10^6/uL Hgb (12.0-16.0) g/dL Hct (37.0-47.0) % MCV (80-100) fL MCH (27.0-34.0) pg MCHC (33.0-35.0) g/dL Plt Count (150-450) 10^3/uL Neut % (Auto) (42.2-75.2) % Lymph % (Auto) (20.5-50.1) % [place] % (Auto) (2-8) % Eos % (Auto) (1.0-3.0) % Baso % (Auto) (0.0-1.0) % PT (9.0-12.0) SEC INR (0.9-1.2) Sodium (136-145) mmol/L Potassium (3.5-5.1) mmol/L Chloride (98-107) mmol/L Carbon Dioxide (21-32) mmol/L Anion Gap (7-13) mEq/L BUN (7-18) mg/dL Creatinine (0.55-1.02) mg/dL Est Cr Clr Drug Dosing mL/min Estimated GFR (MDRD) BUN/Creatinine Ratio (No establ ref range) Glucose (74-99) mg/dL Lactic Acid (0.4-2.0) mmol/L Calcium (8.5-10.1) mg/dL Total Bilirubin (0.2-1.0) mg/dL AST (15-37) U/L ALT (14-59) U/L Alkaline Phosphatase (46-116) U/L Ammonia < 10 L (11-32) umol/L C-Reactive Protein (0.0-0.9) mg/dL Total Protein (6.4-8.2) g/dL Albumin (3.4-5.0) g/dL Globulin Albumin/Globulin Ratio Amylase (25-115) U/L Lipase (73-393) U/L Urine Color (YELLOW) Urine Appearance (CLEAR) Urine pH (5.0-9.0) Ur Specific [place] (1.005-1.030) Urine Protein (NEGATIVE) Urine Glucose (UA) (NEGATIVE) Urine Ketones (NEGATIVE) Urine Occult Blood (NEGATIVE) Urine Nitrite (NEGATIVE) Urine Bilirubin (NEGATIVE) Urine Urobilinogen (0.2-1.0) mg/dL Ur Leukocyte Esterase (NEGATIVE) Urine RBC /HPF Urine WBC (0-5/HPF) /HPF Ur Epithelial Cells (NOT SEEN) /HPF Amorphous Sediment (NOT SEEN) /HPF Urine Bacteria (0-FEW/HPF) /HPF Granular Casts (Auto) Urine Mucus (NOT SEEN) /LPF Influenza Type A RNA (NEGATIVE) Influenza Type B RNA (NEGATIVE) SARS-CoV-2 RNA (RENA) (NEGATIVE) Meds: Medications Generic Name Dose Route Start Last Admin Trade Name Freq PRN Reason Stop Dose Admin Ceftriaxone Sodium 1 gm/ 50 mls @ 100 mls/hr 10/17/20 21:03 Sodium Chloride IV 10/17/20 21:32 ONETIME ONE Discontinued Medications Generic Name Dose Route Start Last Admin Trade Name Freq PRN Reason Stop Dose Admin Acetaminophen 650 mg 10/17/20 19:17 10/17/20 19:26 Acetaminophen 325 Mg Tab PO 10/17/20 19:18 650 mg NOW ONE Administration Sodium Chloride 1,000 mls @ 999 mls/hr 10/17/20 18:43 10/17/20 18:54 Normal Saline IV 10/17/20 19:43 999 mls/hr .BOLUS ONE Administration Ketorolac Tromethamine 30 mg 10/17/20 20:00 10/17/20 20:08 Ketorolac 30 Mg/Ml Sdv IVPUSH 10/17/20 20:01 30 mg ONETIME ONE Administration Ondansetron HCl 4 mg 10/17/20 18:43 10/17/20 18:55 Ondansetron 4 Mg/2 Ml Sdv IV 10/17/20 18:44 4 mg ONETIME ONE Administration - Re-Assessments/Exams Free Text/Narrative Re-Assessment/Exam: 10/17/20 20:10 Discussed the results of the abdominal CT with the patient. The patient reports she has had a headache and nausea/vomiting since Sunday. Departure - Departure Time of Disposition: 21:04 Condition: Fair - Discharge Information *PRESCRIPTION DRUG MONITORING PROGRAM REVIEWED*: Not Applicable *COPY OF PRESCRIPTION DRUG MONITORING REPORT IN PATIENT ERMA: Not Applicable Sepsis Event Note (ED) - Focused Exam Vital Signs: Vital Signs Temp Pulse Resp BP Pulse Ox 10/17/20 20:43 37.9 C 110 H 18 103/57 L 94 L 10/17/20 17:42 39.1 C H 135 H 20 117/66 90 L - My Orders Last 24 Hours: My Active Orders 10/17/20 21:03 cefTRIAXone [Rocephin] 1 gm Sodium Chloride 0.9% [Normal Saline] 50 ml IV ONETIME - Assessment/Plan Last 24 Hours: My Active Orders 10/17/20 21:03 cefTRIAXone [Rocephin] 1 gm Sodium Chloride 0.9% [Normal Saline] 50 ml IV ONETIME I have read and agree with the documentation that has been completed regarding this visit. By signing this record, I attest that the documentation was completed in my physical presence and is an accurate record of the encounter.
--- NOTE | 2020-10-17 19:35 | CT ---
PROCEDURE INFORMATION: Exam: CT Abdomen And Pelvis Without Contrast Exam date and time: 10/17/2020 7:07 PM Age: 50 years old Clinical indication: Other: HX renal CA; Additional info: Ruq pain, flank pain, elevated liver enzymes TECHNIQUE: Imaging protocol: Computed tomography of the abdomen and pelvis without contrast. Radiation optimization: All CT scans at this facility use at least one of these dose optimization techniques: automated exposure control; mA and/or kV adjustment per patient size (includes targeted exams where dose is matched to clinical indication); or iterative reconstruction. COMPARISON: CT Chest Abdomen Pelvis wo Cont 11/23/2017 4:10 PM FINDINGS: Lungs: There are dependent densities at each lung base, which could reflect mild pneumonitis or passive atelectasis. Liver: Liver is enlarged and fatty. No suspicious hepatic masses. Gallbladder and bile ducts: See "Pancreas" finding. Pancreas: The pancreatic parenchyma is normal in bulk and sharply marginated. Duct is not dilated. No calcifications, masses, or abnormal fluid collections. Spleen: Spleen is mildly enlarged, 13.1 cm in length. Adrenal glands: There are no adrenal masses. Kidneys and ureters: Normal in parenchymal bulk. No hydronephrosis or asymmetric perinephric stranding. No solid masses. No stones. Bilateral parapelvic renal cysts, reaching 3.5 cm approximately. These require no further workup and are not changed significantly. Stomach and bowel: No significant abnormalities of the stomach. There are no dilated or thickened small bowel loops. Gas and stool are seen in the colon to the rectum. No mass. Scattered colonic diverticula. Appendix: There is no evidence for appendicitis. Intraperitoneal space: No ascites. No abscess. No inflammation within the intra-abdominal fat. No pneumoperitoneum. No mass. Vasculature: Multiple phleboliths are present bilaterally low within the pelvis. Lymph nodes: There are no enlarged celiac, mesenteric, periportal, extraperitoneal or inguinal lymph nodes. Urinary bladder: There is no bladder wall thickening, mass, or calculus. Reproductive: The uterus is surgically absent. No adenexal masses. Bones/joints: Age appropriate. No acute fracture. No dislocation. There are no suspicious lytic or osteosclerotic lesions. Soft tissues: See "Intraperitoneal space" finding. IMPRESSION: 1. Liver is enlarged and fatty. Not present previously. 2. Spleen is mildly enlarged, 13.1 cm in length. Not present previously. 3. No solid renal mass. COMMENTS: Consistent with the [employer]'s Incidental Findings Committee white paper (J Am Otis Radiol 2018): Any incidental renal lesion less than 1 cm or classified as too small to characterize, or any incidental cystic renal lesion characterized as simple-appearing, is likely benign. No follow-up imaging is recommended for these lesions per consensus recommendations based on imaging criteria.
[2020-10-17] MEDS ORDERED: Ketorolac 30 MG/ML SDV IVPUSH ONE (20:00)
--- NOTE | 2020-10-17 20:39 | CT ---
PROCEDURE INFORMATION: Exam: CT Head Without Contrast Exam date and time: 10/17/2020 8:16 PM Age: 50 years old Clinical indication: Other: Headache TECHNIQUE: Imaging protocol: Computed tomography of the head without contrast. Radiation optimization: All CT scans at this facility use at least one of these dose optimization techniques: automated exposure control; mA and/or kV adjustment per patient size (includes targeted exams where dose is matched to clinical indication); or iterative reconstruction. COMPARISON: No relevant prior studies available. FINDINGS: Brain: No mass effect or midline shift. No abnormal densities are seen intracranially; no sign of acute intracranial hemorrhage or cerebral edema. Cerebral ventricles: No ventriculomegaly. Bones/joints: Skull base and overlying calvarium are intact. No lytic or osteosclerotic lesions. Paranasal sinuses: Visualized sinuses are unremarkable. No fluid levels. Mastoid air cells: Visualized mastoid air cells are well aerated. Soft tissues: Unremarkable. IMPRESSION: No acute intracranial abnormality.
[2020-10-17] MEDS ORDERED: cefTRIAXone 1 GM in Sodium Chloride 0.9% 50 ML IV ONE (21:03)
[2020-10-17 21:49] VITALS: BP 95/56; PULSE 98
== END 2020-10-17 21:47 | disposition home or self-care (01) ==
LOC: DL.ED 17:26
DX: N30.01 Acute cystitis with hematuria (principal); E78.00 Pure hypercholesterolemia, unspecified; I10 Essential (primary) hypertension; K21.9 Gastro-esophageal reflux disease without esophagitis; E11.9 Type 2 diabetes mellitus without complications; Z79.82 Long term (current) use of aspirin; Z79.4 Long term (current) use of insulin; Z79.899 Other long term (current) drug therapy; Z20.822 Contact with and (suspected) exposure to COVID-19
CPT/HCPCS: 0240U; 36415; 70450; 74176; 80053; 81001; 82140; 82150; 83605; 83690; 85025; 85610; 86140; 87040; 96365; 96375; 99284; A9270; J0696; J1642; J1885; J2405; J7030

== ENCOUNTER 2023-11-16 12:33 | Emergency (ER) | payer BC ==
[2023-11-16 13:19] LABS: BASOPHILS PERCENT AUTO 0.7 % (0.0-1.0); HEMATOCRIT 39.7 % (37.0-47.0); HEMOGLOBIN 13.1 g/dL (12.0-16.0); LYMPHOCYTES PERCENT AUTO 36.7 % (20.5-50.1); MEAN CORPUSCULAR HEMOGLOBIN 30.5 pg (27.0-34.0); MEAN CORPUSCULAR VOLUME 92.5 fL (80-100); NEUTROPHILS PERCENT AUTO 49.6 % (42.2-75.2); PLATELET COUNT,PLT 296 10^3/uL (150-450); RED BLOOD CELL COUNT 4.29 10^6/uL (4.2-5.4); WHITE BLOOD CELL COUNT,WBC 9.5 10^3/uL (5.0-10.0)
[2023-11-16] MEDS: Sodium Chloride 0.9% 1,000 ML IV ONE ×2 (13:20→15:30)
[2023-11-16 13:48] LABS: ALBUMIN 3.1 g/dL (3.4-5.0); ANION GAP 16.3 mEq/L (7-13); BILIRUBIN TOTAL 0.9 mg/dL (0.2-1.0); BUN/CREATININE RATIO 17.9 (No establ ref range); CALCIUM 8.5 mg/dL (8.5-10.1); CREATININE 0.84 mg/dL (0.55-1.02); EST CRCL DRUG DOSING (CG) 76.34 mL/min; MAGNESIUM 1.4 mg/dL (1.8-2.4); POTASSIUM,K 3.3 mmol/L (3.5-5.1); PROTEIN TOTAL,TP 6.6 g/dL (6.4-8.2); TSH ULTRASENSITIVE 1.67 uIU/mL (0.36-3.74)
[2023-11-16 13:53] LABS: A/G RATIO 0.89
[2023-11-16 15:06] LABS: APPEARANCE,URINE CLEAR (CLEAR); BILIRUBIN,URINE NEGATIVE (NEGATIVE); COLOR,URINE YELLOW (YELLOW); GLUCOSE,URINE NEGATIVE (NEGATIVE); KETONES,URINE TRACE (NEGATIVE); LEUKOCYTE ESTERASE,URINE NEGATIVE (NEGATIVE); NITRITE,URINE NEGATIVE (NEGATIVE); OCCULT BLOOD,URINE NEGATIVE (NEGATIVE); PROTEIN,URINE NEGATIVE (NEGATIVE); UROBILINOGEN,URINE 0.2 mg/dL (0.2-1.0)
[2023-11-16] MEDS: Magnesium Sulfate/Water 2 GM in Premix Bag 1 BAG IV ONE (16:59)
[2023-11-16 18:25] VITALS: BP 163/82; PULSE 95
== END 2023-11-16 18:22 | disposition home or self-care (01) ==
LOC: DL.ED 12:33
DX: E83.42 Hypomagnesemia (principal); E86.0 Dehydration; E11.65 Type 2 diabetes mellitus with hyperglycemia; R00.0 Tachycardia, unspecified; I10 Essential (primary) hypertension; E78.00 Pure hypercholesterolemia, unspecified; K21.9 Gastro-esophageal reflux disease without esophagitis; Z88.8 Allergy status to other drugs, medicaments and biological substances; Z88.5 Allergy status to narcotic agent; Z91.041 Radiographic dye allergy status; Z91.048 Other nonmedicinal substance allergy status; Z79.82 Long term (current) use of aspirin; Z79.899 Other long term (current) drug therapy; Z79.84 Long term (current) use of oral hypoglycemic drugs; Z79.4 Long term (current) use of insulin; Z86.16 Personal history of COVID-19; Z86.19 Personal history of other infectious and parasitic diseases; Z90.49 Acquired absence of other specified parts of digestive tract
CPT/HCPCS: 36415; 71045; 80053; 81003; 83735; 83880; 84443; 84484; 85025; 85379; 96361; 96365; 99285; J1642; J3475; J7030; 93010; 99284